=== PATIENT | male | born 1975 | race Two or more races ===

== ENCOUNTER 2024-04-17 14:50 | Outpatient (CLI) | payer MEDICAID, SELFPAY | END 2024-04-17 23:59 | disposition home or self-care (01) | LOC: LAB.DROPOF 04-18 11:01 | PROVIDERS: PCP Internal Medicine; Visit Provider Internal Medicine | DX: S51.009A Unspecified open wound of unspecified elbow, initial encounter (principal) | CPT/HCPCS: 87070; 87205 ==